=== PATIENT | female | born 1970 | race African-American/Black ===

== ENCOUNTER 2016-12-28 17:15 | Inpatient (IN) ==
[2016-12-28 18:05] LABS: BASO% 0.2 % (0.0-0.8); HEMATOCRIT 34.9 % (37.0-47.0); HEMOGLOBIN 11.3 g/dL (12.0-16.0); LYMPH# 0.85 X1000 (1.2-3.4); LYMPH% 7.7 % (20.5-51.1); MANUAL DIFF NEEDED? NO; MCH 21.9 PG (27-31); MCHC 32.4 g/dL (33-37); MCV 67.6 FL (81-99); MONO# 0.47 X1000 (0.11-0.59); MONO% 4.3 % (1.7-9.3); MPV 10.9 FL (7.4-10.4); NEUT% 87.8 % (42.2-75.2); PLT 354 X1000 (130-400); RBC 5.16 XMIL (4.2-5.4)
[2016-12-28 18:25] LABS: ALBUMIN 4.2 g/dL (3.5-5.0); CALCIUM 9.9 mg/dL (8.8-10.2); POTASSIUM 4.1 mmol/L (3.5-5.1); TOTAL BILIRUBIN 0.31 mg/dL (0.20-1.00); TOTAL PROTEIN 8.3 g/dL (6.3-8.3)
[2016-12-28] MEDS ORDERED: NS 1,000 ML IV ONE (18:41)
--- NOTE | 2016-12-28 18:43 | PROVIDER DOCUMENTATION ---
HPI-General Adult - General Chief Complaint: Fall Stated Complaint: PAIN Time Seen by Provider: 12/28/16 18:30 Source: patient Allergies/Adverse Reactions: Patient Allergies Allergy/AdvReac Type Severity Reaction Status Date / Time bupropion HCl * Allergy MAKES ME Verified 02/08/16 23:58 [From Wellbutrin] FLIP OUT morphine Allergy ITCHING Verified 02/08/16 21:03 quetiapine fumarate * AdvReac MAKES ME Verified 02/08/16 23:58 [From Seroquel] FLIP OUT Home Medications: Home Medication List Medication Instructions Recorded Confirmed Last Taken Type LISINOpril [Prinivil] 40 mg PO DAILY 08/13/12 12/28/16 12/28/16 07:00 History 40 MG Levothyroxine [Synthroid] 50 microgm PO DAILY 08/13/12 12/28/16 12/28/16 07:00 History 50 MICROGM Escitalopram [Lexapro] 20 mg PO DAILY 06/12/15 12/28/16 12/28/16 07:00 History 20 MG Alprazolam [Xanax] 0.25 mg PO BID 08/05/16 12/28/16 12/28/16 07:00 History 0.25 MG Amlodipine [Norvasc] 10 mg PO DAILY 08/05/16 12/28/16 12/28/16 07:00 History 10 MG Asenapine Maleate [Saphris] 10 mg SL BID 08/05/16 12/28/16 12/28/16 07:00 History 10 MG Furosemide [Lasix] 20 mg PO DAILY 08/05/16 12/28/16 12/28/16 07:00 History 20 MG Hydrocodone/Acetaminophen [[place] 1 each PO BID 08/05/16 12/28/16 12/28/16 07:00 History 7.5-325 Tablet] 1 EACH Metoprolol [Lopressor] 25 mg PO DAILY 08/05/16 12/28/16 12/28/16 07:00 History 25 MG Tizanidine HCl [Zanaflex] 4 mg PO TID 08/05/16 12/28/16 12/28/16 07:00 History 4 MG Zolpidem Tartrate [Ambien] 10 mg PO HS 08/05/16 12/28/16 12/27/16 21:00 History 10 MG - History of Present Illness -Gen Adult Nature of Presenting Problems: 46 yof c/o multiple falls due to left ankle giving out on her throughout the day yesterday and today. Upon entering the room patient seemed confused able to follow commands and tell me where she was and why she was here, but constantly looking for the phone in her hand and other odd behaviors throughout the assessment. Location of Pain/Injury: reports: generalized Quality of Pain: reports: aching Severity: reports: moderate Timing: reports: still present Similar Symptoms Previously?: No Recently seen or treated by another doctor?: No Review of Systems - Adult - REVIEW OF SYSTEMS - ADULT Constitutional: reports: see HPI Eyes: reports: no symptoms reported Ears, Nose, Mouth & Throat: reports: no symptoms reported Cardiovascular: reports: no symptoms reported Respiratory: reports: no symptoms reported Gastrointestinal: reports: no symptoms reported Genitourinary: reports: no symptoms reported Musculoskeletal: reports: see HPI, joint pain Integumentary: reports: no symptoms reported Neurological: reports: no symptoms reported Psychiatric: reports: see HPI, alcohol/drug dependence Endocrine: reports: no symptoms reported Hematologic/Lymphatic: reports: no symptoms reported Allergic/Immunologic: reports: no symptoms reported All Other Systems: Reviewed and Negative Past History - Adult - PAST MEDICAL HISTORY-ADULT Review of Records: reports: Old Records Reviewed, Nursing Assessment Review, Medications Reviewed, Social history reviewed & non-contributory. Major Childhood Illnesses: reports: denies history Cardiovascular: reports: HTN Respiratory: reports: denies history Gastrointestinal: reports: GERD, hemorrhoids Obstetrical/Gynecological: reports: denies history Genitourinary: reports: denies history Musculoskeletal: reports: chronic pain, intervertebral disc disease Neurological: reports: headaches/migraines Psychiatric: reports: anxiety, schizophrenia Endocrine/Immune: reports: thyroid disorder Other Conditions: reports: denies history - PRIOR SURGERIES/PROCEDURES Surgical/Procedure History: reports: hysterectomy, recent surgery, reviewed, not pertinent, other, cholecystectomy - PRIOR HOSPITALIZATIONS Prior Hospitalizations: reports: psychiatric or rehab - IMMUNIZATION STATUS Childhood Immunizations: See Nurse Assessment Flu Vaccine: See Nurse Assessment - FAMILY HISTORY Family History: diabetes, reviewed, not pertinent Physical Exam-General - PHYSICAL EXAM-ADULT Initial Vital Signs Reviewed: Yes - CONSTITUTIONAL General Appearance: alert, no apparent distress - EYES Eyes: PERRL/EOMI, pink conjunctivae - HEAD, EARS, NOSE, MOUTH & THROAT HENMT: normocephalic/atraumatic, moist mucous membranes, normal ENT inspection, TMs normal, pharynx normal - NECK Neck: non-tender, full range of motion, supple, normal inspection - RESPIRATORY Respiratory: chest non-tender, lungs clear, normal breath sounds, no pleuratic chest pain, no respiratory distress, no accessory muscle use - CARDIOVASCULAR Cardiovascular: normal peripheral pulses, regular rate, rhythm, no edema, no gallop, no JVD, no murmur - GASTROINTESTINAL (ABDOMEN) Abdominal Exam: normal bowel sounds, non tender, soft, no organomegaly, no pulsatile mass - LYMPHATIC Lymphatic: no adenopathy - MUSCULOSKELETAL Back Exam: normal inspection, no CVA tenderness, no vertebral tenderness Extremity: normal range of motion, non-tender, normal gait, normal inspection, no pedal edema, no calf tenderness, normal capillary refill, pelvis stable Peripheral Pulses: radial (R): 2+, radial (L): 2+, dorsalis-pedis (R): 2+, dorsalis-pedis (L): 2+ - SKIN Integumentary: normal color, normal turgor, warm/dry - NEUROLOGIC Neurologic: grossly normal, no motor/sensory deficits - PSYCHIATRIC Psych/Mental Status: oriented x 3, anxious, depressed affect, paranoid Progress - PLAN OF CARE/RESULTS Progress/Plan/Lab Results: Vital Signs - 8 hr 12/28/16 17:16 12/28/16 18:27 Temperature 97.9 F Pulse Rate 73 71 Respiratory Rate 16 15 Blood Pressure 80/46 95/58 O2 Sat by Pulse Oximetry 100 100 Laboratory Results - last 24 hr 12/28/16 12/28/16 17:40 17:40 WBC 10.97 H RBC 5.16 Hgb 11.3 L Hct 34.9 L MCV 67.6 L MCH 21.9 L MCHC 32.4 L RDW Std Deviation 17.5 H Plt Count 354 MPV 10.9 H Immature Gran % (Auto) 0.0 Neut % (Auto) 87.8 H Lymph % (Auto) 7.7 L [place] % (Auto) 4.3 Eos % (Auto) 0.0 Baso % (Auto) 0.2 Immature Gran # (Auto) 0.00 Neut # (Auto) 9.63 H Lymph # (Auto) 0.85 L [place] # (Auto) 0.47 Eos # (Auto) 0.00 Baso # (Auto) 0.02 Sodium 136 Potassium 4.1 Chloride 93 L Carbon Dioxide 23 L Anion Gap 20 BUN 19 Creatinine 1.6 H Estimated GFR/1.73 m2 42 BUN/Creatinine Ratio 12 Glucose 144 H Calculated Osmolality 277 Calcium 9.9 Total Bilirubin 0.31 AST 21 ALT 11 Alkaline Phosphatase 114 H Total Protein 8.3 Albumin 4.2 Globulin 4.1 Albumin/Globulin Ratio 1.0 Orders Category Date Time Status HEAD W/O CONTRAST [CT] Stat Exams 12/28/16 18:39 Ordered CBC WITH DIFF [HEME] Stat Lab 12/28/16 17:40 Completed COMPREHENSIVE METABOLIC PANEL [CHEM] Stat Lab 12/28/16 17:40 Completed ETOH [ALCOHOL BLOOD] Stat Lab 12/28/16 18:39 Ordered URINALYSIS W/POSS RFLX CULT-1 [URINALYSIS] Stat Lab 12/28/16 18:30 Uncollected URINE DRUG SCREEN Stat Lab 12/28/16 18:30 Uncollected 0.9% Sodium Chloride Inj [Ns] 1,000 ml Med 12/28/16 18:41 Active IV 999 mls/hr Mother at bedside worried that she is taking too many of her medications at home. Pt just had Zanaflex filled on 12/26/16 and the bottle is empty. Result Diagrams: 12/28/16 17:40 12/28/16 17:40 - CT/MRI 1 CT Study: Head Impression: See EMR Report (Impression: While the abnormalities described above may be due to multifocal subacute ischemic change, the possibility of vasogenic edema and metastatic disease cannot be excluded, and further evaluation with contrast CT or MRI is recommended. Per Dr. Heredia.) - CONSULTS/PCP/HOSPITALIST Notification #1 *Consult/PCP/Hospitalist*: Dr. Corcoran Consult Disposition: Will see in ED, Admit Departure - Departure Date of Disposition Decision: 12/29/16 Time of Disposition Decision: 00:46 DIAGNOSIS: Noncompliance with medication treatment due to abuse of medication Chronic pain Qualifiers: Chronic pain type: other chronic pain Qualified Code(s): G89.29 - Other chronic pain Altered mental state Qualifiers: Altered mental status type: unspecified Qualified Code(s): R41.82 - Altered mental status, unspecified Disposition: ADMITTED INPATIENT 09 Certified Medical Emergency: Emergent Condition: Stable - Critical Care Note This patient required my direct & personal management of CC.: No Attestation - Physician/ MIL Attestation Patient care was provided by Advanced Practice Provider:: Yes Advanced Practice Provider:: Stefano Lira Advanced Practice Provider documentation review:: The Mid-level provider documentation, treatment plan and medical decision making was reviewed by the physician who agrees with all treatment and medical decision making by the MLP. The physician spent face to face time with patient:: No Advanced Practice Provider documentation review:: Supervising physician onsite and consulted in the evaluation and care of this patient. The physician did not have a face to face encounter with the patient.
--- NOTE | 2016-12-28 19:15 | Diag Imaging Result Doc PS360 ---
EXAM: HEAD W/O CONTRAST HISTORY: AMS TECHNIQUE: CT of the head without contrast COMMENT: There are multiple areas of decreased attenuation present in the convexity of both hemispheres. These findings were not present on 01/06/2014. There is no evidence of bleed or abnormal extra-axial fluid collection. No acute bony abnormalities are present. IMPRESSION: While the abnormalities described above may be due to multifocal subacute ischemic change, the possibility of vasogenic edema and metastatic disease cannot be excluded, and further evaluation with contrast CT or MRI is recommended. Electronically signed by Saqib Heredia 12/28/2016 7:13 PM
[2016-12-28 19:34] LABS: URINE MICRO REVIEW NEEDED? NO; URINE SOURCE CLEAN CATCH
[2016-12-28 19:39] LABS: BILIRUBIN URINE NEGATIVE (NEGATIVE); BLOOD URINE NEGATIVE (NEGATIVE); COLOR YELLOW; GLUCOSE URINE NEGATIVE (NEGATIVE); LEUKOCYTES URINE TRACE (NEGATIVE); NITRITE URINE NEGATIVE (NEGATIVE); PROTEIN URINE 50 mg/dL (NEGATIVE); SP GRAVITY URINE 1.011; TURBIDITY URINE HAZY (CLEAR); UROBILINOGEN URINE NORMAL (NORMAL)
[2016-12-28 19:40] LABS: UR EPITHELIAL CELLS >10 /HPF (<10); URINE BACTERIA NEGATIVE /HPF; URINE CULTURE NEEDED? YES; URINE RBC <10 /HPF (<10)
[2016-12-28 19:50] LABS: UR AMPHETAMINES QUAL NONE DETECTED (NONE DETECT); UR BARBITUATES QUAL NONE DETECTED (NONE DETECT); UR BENZODIAZEPIN QUAL NONE DETECTED (NONE DETECT); UR CANNABINOIDS QUAL NONE DETECTED (NONE DETECT); UR COCAINE QUAL NONE DETECTED (NONE DETECT); UR METHADONE QUAL NONE DETECTED (NONE DETECT); UR OPIATES QUAL PRESUMPTIVE POSITIVE (NONE DETECT); UR OXYCODONE QUAL NONE DETECTED (NONE DETECT); UR PCP QUAL NONE DETECTED (NONE DETECT)
[2016-12-29] MEDS ORDERED: NS 1,000 ML IV SCH (01:15)
[2016-12-29] MEDS ORDERED: TYLENOL PO PRN (03:09)
--- NOTE | 2016-12-29 03:28 | HISTORY AND PHYSICAL ---
PRIMARY CARE PHYSICIAN: Dr. Sang Fairbanks. CHIEF COMPLAIN: Recurrent falls. HISTORY OF PRESENT ILLNESS: Ms. Soni is a 46-year-old female with a past medical history significant for depression, anxiety, psychosis, seizure disorder, and thyroid disease who comes to the hospital complaining of recurrent falls. According to Ms. Snoi, she has been complaining of numbness and tingling in her 2 feet, worse on that left side, for the last 2 weeks. The patient states that for the last 2 days, the numbness and tingling in her foot, especially the left 1, has been getting worse to the point that every time she tries to get out of a chair or out of bed, she loses strength and falls to the ground. Four days ago, patient states that she fell and hit her head and lost consciousness for a few minutes. However, patient recovered and did not come to the hospital. According to the patient, this was witnessed by her mother. For the last few days, patient has been having ongoing symptoms of numbness, tingling, and recurrent falls. In the last couple of days, she has not lost consciousness or hit her head. The patient complains that she cannot feel at all her 2nd and 3rd toes of the left foot, and states that this is causing her to lose balance and fall. In the emergency room, the patient was noted to have odd behavior. She was confused. Alert and oriented x3. However, the patient did not answer appropriately to some of the questions. When our ER nurses checked through the patient's medications , it was noted that there were some empty bottles of patient's home medications including zolpidem, tizanidine, Xanax. The patient states that she has not misused any of her medications. REVIEW OF SYSTEMS: Negative except as stated above. PAST MEDICAL HISTORY: 1. History of anemia. 2. Anxiety. 3. Arthritis. 4. Depression. 5. Hypertension. 6. Seizure disorder. Last seizure at age 44. 7. Hypothyroidism. 8. History of blood transfusion, status post . PAST SURGICAL HISTORY: 1. C-sections x4. 2. Hysterectomy. 3. Spinal fusion. 4. Tubal ligation. 5. Hemorrhoid surgery. 6. Ankle surgery on the right side. HOME MEDICATIONS: 1. Levothyroxine 75 mcg tablet oral daily. 2. Metoprolol succinate 50 mg tablet oral daily. 3. Saphris (asenapine) 10 mg tablet oral daily. 4. Lisinopril 40 mg tablet oral daily. 5. Amlodipine 10 mg tablet oral daily. 6. Tizanidine 4 mg t.i.d. 7. Citalopram 10 mg tablet oral daily. 8. Zolpidem 10 mg tablet at bedtime. 9. Vicodin 7.5 mg/325 mg tablet oral b.i.d. ALLERGIES: The patient states she is allergic to penicillin which gives her a rash. FAMILY HISTORY: Positive for anemia, arthritis, asthma, diabetes, heart disease , hypertension, and an unknown type of cancer in paternal aunt. SOCIAL HISTORY: Alcohol, drinks socially. The patient states she no longer smokes and denies using illicit drugs. PHYSICAL EXAMINATION: VITAL SIGNS: Temperature 97.9 degrees, pulse 53, respirations 15, blood pressure 151/95, oxygen saturation 98% on room air. GENERAL: Patient is alert and oriented x3. No acute distress. HEENT: Head is normocephalic, atraumatic. Eyes, [place]. Moist mucous membranes. NECK: Supple. No JVD. PULMONARY: Well-ventilated bilaterally. No wheezing, rales, or crackles. CARDIOVASCULAR: S1, S2. No rubs, murmurs, or gallops. ABDOMEN: Soft, nondistended, nontender. EXTREMITIES: No lower extremity edema. Bilateral pedal pulses. Negative Babinski bilaterally. The patient refused to get out of bed because she was afraid of falling. Strength in upper extremities is +5/5, lower extremities +4/5. LABORATORY DATA: White blood cell count 10.9, hemoglobin 11.3, hematocrit 35, platelets 354,000. Sodium 136, potassium 4.1, BUN 12, creatinine 1.6. IMAGING STUDIES: Head CT shows multiple areas of decreased attenuation present in the convexity of both hemispheres, no evidence of bleed. Possibility of vasogenic edema and metastatic disease cannot be excluded and MRI is recommended. ASSESSMENT AND PLAN: 1. Encephalopathy, likely secondary to misuse of her medications. We will hold the patient's home medications that may worsen encephalopathy. Currently, patient is alert and oriented x3. We will continue to monitor and reassess tomorrow. The patient may need further evaluation from neurology. 2. Question of left footdrop. The patient's neurological exam was fairly normal. Physical therapy will be consulted to assess if patient has weakness and, as mentioned above, a neurology consult may be necessary. We will continue to monitor. MRI might be necessary per radiologist's recommendations. 3. Acute kidney injury. Creatinine is mildly elevated. The patient will be on intravenous normal saline for the next hours. Chemistry panel will be reassessed in the morning. 4. Hypertension. We will continue patient's home medications, metoprolol, amlodipine, Lasix, lisinopril. 5. Chronic pain patient. The patient's home medications with narcotics will be held for the meantime and pain will be controlled as needed with acetaminophen. cc: Naz Corcoran MD MTDD
[2016-12-29] MEDS: HEPARIN SUBQ SCH ×2 (08:53→21:16)
[2016-12-29] MEDS: PRINIVIL PO SCH (08:54)
[2016-12-29] MEDS: LOPRESSOR PO SCH (08:54)
[2016-12-29] MEDS: NORVASC PO SCH (08:54)
[2016-12-29] MEDS: LASIX PO SCH (08:54)
[2016-12-29] MEDS: SYNTHROID PO SCH (08:58)
[2016-12-29] MEDS: NORCO-7.5 PO PRN ×2 (15:14→21:15)
--- NOTE | 2016-12-29 16:13 | PROGRESS NOTE ---
DATE: 12/29/2016 SUBJECTIVE: This is a 46-year-old was admitted early this morning. Past medical history significant for depression, anxiety, psychosis, seizure disorder, or thyroid disease, came to hospital complaining of recurrent falls. According to Ms. Soni she has been complaining of numbness and tingling in both feet worse in the left side for the last 2 weeks. The patient states that the last 2 days of numbness and tingling in her foot especially on the left. She loses strength, falls to the ground. Four days ago the patient states that she fell and hit her head and lost consciousness for a few minutes, however, patient recovered. Did not come to the hospital. According to patient this was witnessed by her mother. For the last few days patient has been having ongoing sense of numbness and tingling, recurrent falls in the last couple days and has not lost consciousness or hit her head. Patient complains that she cannot feel at all 2nd and 3rd toes of the left foot. States that this causing her to lose balance and fall. In the emergency room patient was noted to have odd behavior. She was confused but alert and oriented x3 when questioned, however, the patient did not answer appropriate on some questions. When our ER nurse checked through the patient's medication it was noted there were empty bottles of the patient's including zolpidem, tizanidine, Xanax. The patient states that she is not missed using her medications. PAST MEDICAL HISTORY: Consistent with anemia, anxiety, arthritis, depression, hypertension, seizure disorder, last seizure at age 44, hypothyroidism, blood transfusion status post . PAST SURGICAL HISTORY: C-sections x4, hysterectomy, spinal fusion, tubal ligation, hemorrhoid surgery, and ankle surgery on the right side. MEDICATIONS: Review her medications at home. OBJECTIVE: Today she feels better. Still has a [place] catheter in. She is awake, alert. She is requesting her pain med. Says her back hurts her. She is requesting Ambien. Told her we would put her back on her pain medicine which she reported she has taken 4 times a day. On her patient hospital list it was twice a day. Will let her have [place] 7.5 mg q.6 h. Plan is to get the [place] catheter out tomorrow. Make sure we wait. Still feels pretty weak and puny. Will get her up and have her ambulate and hopefully she can go home tomorrow. CT of the head revealed there are multiple areas of decreased attenuation present in the convexity of both hemispheres. These findings were not present on 01/06/2014 and no evidence of bleeding or abnormal extra-axial fluid collection. These findings could be due to multifocal subacute ischemic change, possibility of vasogenic edema, metastatic disease cannot be excluded. Clinically she has no focal neurologic deficits. On review of the orders, do not see any changes at this point. We will add back her [place]. Told her I would probably leave the Ambien off. Continue her Synthroid and she is on Prinivil 40 mg a day, metoprolol 25 mg a day. cc: Amish Kwok MD
[2016-12-30] MEDS: NORCO-7.5 PO PRN ×2 (03:40→09:39)
[2016-12-30] MEDS: SYNTHROID PO SCH (06:24)
--- NOTE | 2016-12-30 07:55 | EKG Report ---
Test Performed on : 12/28/2016 5:25:39 PM Test Reason : No Order in MSA Management Blood Pressure : / mmHG Vent. Rate : 063 BPM Atrial Rate : 063 BPM P-R Int : 142 ms QRS Dur : 092 ms QT Int : 538 ms P-R-T Axes : 057 011 083 degrees QTc Int : 550 ms Normal sinus rhythm. Possible Left atrial enlargement Left ventricular hypertrophy Prolonged QT Abnormal ECG When compared with ECG of 05-AUG-2016 14:37, Nonspecific T wave abnormality no longer evident in Inferior leads QT has lengthened Unconfirmed Result
[2016-12-30 08:00] VITALS: BP 177/98
[2016-12-30] MEDS: LASIX PO SCH (08:45)
[2016-12-30] MEDS: LOPRESSOR PO SCH (08:45)
[2016-12-30] MEDS: PRINIVIL PO SCH (08:45)
[2016-12-30] MEDS: HEPARIN SUBQ SCH (08:45)
[2016-12-30] MEDS: NORVASC PO SCH (08:45)
--- NOTE | 2016-12-30 13:10 | DISCHARGE SUMMARY ---
ADMISSION DATE: 12/29/2016 DISCHARGE DATE: 12/30/2016 HISTORY AND HOSPITAL COURSE: This is a 46-year-old who has a past medical history significant for depression, anxiety, psychosis, seizure disorder, and thyroid disease, who comes in the hospital complaining of recurrent falls. According to Ms. Soni she had been complaining of numbness and tingling in her feet, worse on the left side, in the last 2 weeks. The patient states that in the last 2 days the numbness and tingling in her foot especially on the left has been getting worse, to the point that every time she tries to get out of a chair and out of bed she loses strength and falls to the ground. Four days ago patient states that she fell and hit her head and lost consciousness for few minutes. However, the patient recovered and did not come to the hospital at that time. Apparently, this was witnessed by her mother. For the last few days the patient has been having ongoing symptoms of numbness, tingling, recurrent falls. In the last couple of days she has not lost consciousness nor has she hit her head. PAST MEDICAL HISTORY: 1. History of anemia. 2. Anxiety. 3. Arthritis. 4. Depression. 5. Hypertension. 6. Seizure disorder. 7. Hypothyroidism. 8. History of blood transfusion status post . PAST SURGICAL HISTORY: 1. Status post C-sections x4. 2. Hysterectomy. 3. Spinal fusion. 4. Tubal ligation. 5. Hemorrhoid surgery. 6. Ankle surgery on the right side. LIST OF MEDICATIONS: She is on levothyroxine, metoprolol, Saphris 10 mg tablet daily, lisinopril, amlodipine, tizanidine, citalopram 10 mg a day, Zyloprim, and Vicodin. So she was admitted with encephalopathy, suspect secondary to her medications. She did admit she took some extra medications I think to help her try and get some sleep. She is much better. Alert and oriented and eating. She did have a questionable left foot drop which has resolved, acute ankle injury which is consistent with a sprain. Blood pressure was well controlled. She does have a history of chronic pain. She wanted to go home on 12/30/2016. DISCHARGE MEDICATIONS: She was taking at home Xanax 0.25 mg b.i.d., amlodipine 10 mg a day, Saphris 10 mg sublingual b.i.d., Lexapro 20 mg a day, Lasix 20 mg a day, hydrocodone 7.5 one b.i.d., Prinivil 40 mg a day, Synthroid 50 mcg a day, Lopressor 25 mg a day, Zanaflex 4 mg p.o. t.i.d., Ambien 10 mg at bedtime. FOLLOW UP: She is to follow up with her primary care and that is Dr. Sang Fairbanks. cc: Amish Kwok MD
--- NOTE | 2017-03-20 08:07 | ED EKG INTERP ---
This chart was entered by Kamryn Jimenez Scribe, acting as scribe for Seb Peterson MD. EKG Interpretation - EKG Time of EKG reading by physician:: 17:25 EKG Read and Signed by:: Seb Peterson EKG Interpretation (*Must complete 3 of following elements*): Abnormal Rate: 63 (possible left atrial enlargement; left ventricular hypertrophy; prolonged QT) Rhythm: NSR Attestation - Physician/ MIL Attestation Patient care was provided by Advanced Practice Provider:: Yes Advanced Practice Provider documentation review:: The Mid-level provider documentation, treatment plan and medical decision making was reviewed by the physician who agrees with all treatment and medical decision making by the MLP. The physician spent face to face time with patient:: No Advanced Practice Provider documentation review:: Supervising physician onsite and consulted in the evaluation and care of this patient. The physician did not have a face to face encounter with the patient. This chart was documented by the indicated scribe, (Kamryn Jimenez Scribe) and accurately reflects the services I performed and decisions made by me, Seb Petreson MD, as attested by the provider's signature.
== END 2016-12-30 13:52 | disposition home or self-care (01) ==
LOC: ED 17:15 → SUATTDRO 12-29 01:24 → 3N 12-29 01:24
PROVIDERS: ATTEND Emergency Medicine